=== PATIENT | male | born 1980 | race Two or more races ===

== ENCOUNTER 2023-06-17 13:19 | Emergency (ER) | payer BC, OTHER ==
[2023-06-17 13:26] VITALS: BP 113/69; PULSE 75; RESP 18; TEMP 98.4; BMI 23.6
[2023-06-17] MEDS ORDERED: ACETAMINOPHEN 500 MG TABLET (FP) PO ONE (14:43)
[2023-06-17] MEDS ORDERED: IBUPROFEN 600 MG TABLET (FP) PO ONE ×2 (14:43→14:59)
[2023-06-17] MEDS ORDERED: ACETAMINOPHEN 500 MG TABLET (FP) ONE (14:59)
[2023-06-17 15:25] LABS: PH,URINE 5.5 (5.0-8.0); URINE APPEARANCE CLEAR; URINE BILIRUBIN NEGATIVE (NEGATIVE); URINE COLOR YELLOW; URINE GLUCOSE (UA) NEGATIVE (NEGATIVE); URINE KETONE NEGATIVE (NEGATIVE); URINE LEUK ESTERASE NEGATIVE (NEGATIVE); URINE NITRITE NEGATIVE (NEGATIVE); URINE PROTEIN NEGATIVE (NEGATIVE); URINE UROBILINOGEN 0.2 mg/dL (0.2-1.0)
== END 2023-06-17 16:01 | disposition home or self-care (01) ==
LOC: JERFT 13:19
DX: R51.9 Headache, unspecified (principal); M54.50 Low back pain, unspecified; M79.604 Pain in right leg; M79.605 Pain in left leg; Z20.822 Contact with and (suspected) exposure to COVID-19
CPT/HCPCS: 0241U-QW; 81003; 87086; 99283-25